=== PATIENT | male | born 1995 | race Native Hawaiian/Other Pacific Islander ===

== ENCOUNTER 2022-06-05 05:16 | Emergency (ER) | payer OTHER ==
[~2022-06-05] VITALS: Ht 165.1 cm; Wt 124.7 kg
[2022-06-05 06:15] VITALS: BP 152/97; TEMP 98.5
== END 2022-06-05 06:15 | disposition home or self-care (01) ==
LOC: ED 05:16
PROC: 2W3DX1Z Immobilization of Left Lower Arm using Splint (ICD-10-PCS; principal; 2022-06-05)
DX: S66.412A Strain of intrinsic muscle, fascia and tendon of left thumb at wrist and hand level, initial encounter (principal); X50.1XXA Overexertion from prolonged static or awkward postures, initial encounter; Y92.89 Other specified places as the place of occurrence of the external cause
CPT/HCPCS: 99283

== ENCOUNTER 2022-10-08 01:51 | Emergency (ER) | payer OTHER ==
[~2022-10-08] VITALS: Ht 165.1 cm; Wt 117.9 kg
[2022-10-08 02:47] LABS: POTASSIUM 4.1 mmol/L (3.6-5.2); SODIUM 139 mmol/L (136-145)
[2022-10-08 02:53] LABS: PLATELET COUNT 330 K/uL (142-355)
[2022-10-08 07:00] VITALS: BP 158/84; TEMP 98.1
== END 2022-10-08 09:55 | disposition other institution (70) ==
LOC: ED 01:51
PROVIDERS: Internal Medicine
DX: F32.89 Other specified depressive episodes (principal); R45.851 Suicidal ideations
CPT/HCPCS: 36415; 80053; 80143; 80179; 80307; 80320; 81002; 85027; 99285

== ENCOUNTER 2023-09-14 10:28 | Emergency (ER) | payer OTHER ==
[~2023-09-14] VITALS: Ht 165.1 cm; Wt 112.9 kg
[~2023-09-14 10:28] MED LIST: ONDA4TAB3 PO
[2023-09-14] MEDS ORDERED: SODIUM CHLORIDE 0.9% 1,000 ML IV ONE (10:53)
[2023-09-14] MEDS ORDERED: Ondansetron HCl 4 MG INJ INJ ONE (10:55)
[2023-09-14 11:13] LABS: PLATELET COUNT 302 K/uL (142-355)
[2023-09-14] MEDS ORDERED: GI COCKTAIL-HYOSCYAMINE 30 ML ML PO ONE (13:01)
[2023-09-14] MEDS ORDERED: GI COCKTAIL-HYOSCYAMINE 30 ML ML PO SCH (13:01)
[2023-09-14 13:47] VITALS: BP 125/71; TEMP 98.4
== END 2023-09-14 13:47 | disposition home or self-care (01) ==
LOC: ED 10:28
PROVIDERS: Internal Medicine Endocrinology, Diabetes & Metabolism
DX: R10.9 Unspecified abdominal pain (principal); R11.2 Nausea with vomiting, unspecified; R19.7 Diarrhea, unspecified
CPT/HCPCS: 36415; 80053; 81002; 82150; 83690; 85027; 96361; 96374; 99284; J2405; Q9963